=== PATIENT | female | born 1960 | race African-American/Black ===

== ENCOUNTER 2018-11-08 11:50 | Emergency (ER) | payer MEDICAID, MEDICARE ==
--- NOTE | 2018-11-08 12:50 | RAD ---
UPRIGHT FRONTAL CHEST RADIOGRAPH: Date: 11-08-18 Comparison: 04-30-11 History: Hypertension, back pain, chest pain, hyperglycemia. FINDINGS: Heart and mediastinal contours appear within normal limits. No pneumothorax, pleural fluid, focal con solidation or alveolar edema. IMPRESSION: No acute findings. POS: [facility]
[2018-11-08] MEDS ORDERED: Iopamidol 370 76% 50 ML VIAL FS ONE (12:53)
[2018-11-08 13:14] LABS: Hemoglobin 13.5 g/dL (12.0-16.0); Mean Corpuscular HGB CONC 33.7 g/dL (32.0-36.0); Mean Corpuscular Hemoglobin 28.5 pg (27.0-31.0); Mean Corpuscular Volume 84.6 fL (78.0-98.0); Mean Platelet Volume 8.5 fL (7.4-10.4); Platelet Count 254 thou/uL (130-400); RBC Distribution Width 12.4 % (11.5-14.5); Red Blood Cell (RBC) Count 4.75 mill/uL (4.20-5.40); White Blood Cell (WBC) Count 4.7 thou/uL (4.8-10.8)
[2018-11-08 13:34] LABS: ALT (SGPT) 14 U/L (8-55); AST (SGOT) 13 U/L (5-34); Alkaline Phosphatase 123 U/L (40-150); Anion Gap 12 mmol/L (10-20); BUN (Urea Nitrogen) 14 mg/dL (9.8-20.1); Bilirubin, Total 0.2 mg/dL (0.2-1.2); CK (CPK) 49 U/L (29-168); Calc. Creatinine Clearance 0 mL/min (70-130); Calcium 9.5 mg/dL (7.8-10.44); Carbon Dioxide 23 mmol/L (22-29); Chloride 106 mmol/L (98-107); Estimated GFR-MDRD Greater than 90; Globulin 3.8 g/dL (2.4-3.5); Glucose 104 mg/dL (70-105); Potassium 4.3 mmol/L (3.5-5.1); Protein, Total 7.8 g/dL (6.0-8.3); Sodium 137 mmol/L (136-145)
[2018-11-08 14:01] LABS: Eosinophils 2 % (0-10); Lymphocytes 55 % (21-51); MDiff Complete? YES; Monocytes 8 % (0-10); Neutrophil 34 % (42-75); PLT Morphology Comment Appears Adequate
--- NOTE | 2018-11-08 14:17 | CT ---
CT ANGIOGRAM THORAX WITH IV CONTRAST AND 3D RECONSTRUCTIONS: Date: 11/08/18 HISTORY: Dull chest pain which started last night. Patient also complains of back pain. FINDINGS: No filling defects are seen in the pulmonary arteries to suggest a pulmonary embolus. Vascular calcif ications are seen in the thoracic aorta with minimal vascular calcifications in the coronary arteries . The thoracic aorta is normal in caliber without evidence of an aortic dissection. Calcified mediastinal lymph nodes are present. No enlarged lymph nodes are seen by CT size criteria. There is a pleural based nodular density along the minor fissure, likely related to an area of nodula r pleural thickening. There is linear atelectasis versus scarring at the medial aspect of each lung b ase. Lungs are otherwise clear and there is no pleural effusion present. Calcified granulomas seen in the visualized spleen. IMPRESSION: 1. No CT evidence of a pulmonary embolus. 2. Mild cardiomegaly. 3. Evidence of prior granulomatous disease. POS: [facility]
[2018-11-08 15:13] LABS: Bilirubin Negative (Negative); Blood, Urine Small (Negative); Clarity CLEAR (Clear); Glucose, Urine (Dipstick) Negative (Negative); Leukocyte Negative (Negative); Nitrite Negative (Negative); Protein, Urine (Dipstick) Negative (Neg-Trace); Specific Gravity, Urine 1.037 (1.002-1.036); Urobilinogen 0.2 mg/dL (0.2-1.0)
[2018-11-08 15:16] LABS: Bacteria/HPF None Seen HPF (None Seen); Hyaline Casts/LPF 0-3 HYALINE CAST LPF (0-3 Hyaline); Pathc Cast-AUWi Flag 0.43 (0-2.49); Squamous Epithelial 0-3 HPF (0-3); WBC/HPF 0-3 HPF (0-3)
== END 2018-11-08 15:07 | disposition home or self-care (01) ==
LOC: ERS 11:50
DX: R07.9 Chest pain, unspecified (principal); E11.65 Type 2 diabetes mellitus with hyperglycemia; I10 Essential (primary) hypertension
CPT/HCPCS: 71045; 71275; 80053; 81003; 81015; 82010; 82550; 83880; 84484; 85025; 85379; 93005; 96360

== ENCOUNTER 2019-08-25 10:16 | Day surgery (SDC) | payer OTHER ==
[2019-08-24 14:19] VITALS: BMI 36.7
[2019-08-25] MEDS ORDERED: Fentanyl 100 MCG/2 ML VIAL ONE (13:38)
--- NOTE | 2019-08-25 15:46 | MRI ---
EXAM: MRI of the brain without contrast HISTORY: Dizziness and imbalance for several months COMPARISON: 03/20/2009 TECHNIQUE: Multiplanar multisequence MR images were obtained of the brain without IV contrast. FINDINGS: The brain demonstrates normal signal intensity on all obtained sequences. No restricted diffusion. No hydronephrosis. No extra-axial fluid collection or intracranial hemorrhage. The expected flow voids are present. Corpus callosum, pituitary, and craniocervical junction are within normal limits. The calvarium and overlying soft tissues are unremarkable. The paranasal sinuses and mastoid air cells are well aerated. IMPRESSION: No evidence of acute intracranial abnormality.
--- NOTE | 2019-08-25 15:52 | MRI ---
Cervical spine MRI: 08/25/2019 COMPARISON: 01/17/2013 HISTORY: Dizziness, stenosis, imbalance, cervical spondylosis TECHNIQUE: Multiplanar multisequence MR imaging of cervical spine without contrast FINDINGS: The sagittal STIR imaging demonstrates no focal area of osseous marrow edema. No significan t anterolisthesis or retrolisthesis noted within the cervical spine. Stable mild degenerative change at the atlantoaxial interspace. C2-3: No significant central canal or neural foraminal stenosis. C3-4: Mild stable disc bulge. Mild facet hypertrophy on the left. Mild/moderate central canal stenosi s. No significant neural foraminal stenosis. C4-5: Disc space narrowing with disc bulge effacing ventral thecal sac and causing severe central can al stenosis with mild mass effect on the cervical cord, slightly worsened since the prior exam. Mild bilateral neural foraminal stenosis on the basis of facet hypertrophy. C5-6: Disc space with disc desiccation and disc bulge effacing ventral thecal sac and abutting the ve ntral aspect of the cord with mild cord flattening and severe central canal stenosis. Bilateral facet and uncovertebral osteophyte formation causes moderate/severe bilateral neural foraminal stenos is, left greater than right. C6-7: There is disc space narrowing with disc desiccation and mild disc bulge causing partial effacem ent of the ventral thecal sac and mild/moderate central canal stenosis, stable. Moderate neural foraminal stenosis on the basis of facet and uncovertebral osteophyte formation. C7-T1: No significant central canal or neural foraminal stenosis. No focal area of abnormal signal intensity within the cervical cord. IMPRESSION: Prominent multilevel cervical spine degenerative change as detailed above.
--- NOTE | 2019-08-25 16:08 | MRI ---
Lumbar spine MRI without contrast: 08/25/2019 COMPARISON: None HISTORY: Lumbar radiculopathy TECHNIQUE: Multiplanar multisequence MR imaging of the lumbar spine without contrast FINDINGS: The sagittal STIR imaging demonstrates no focal area of osseous marrow edema. On the basis of 5 lumbar type vertebral bodies, conus medullaris terminates at L1-2. T12-L1: Mild bilateral facet hypertrophy. Mild disc space narrowing with no significant central canal or neural foraminal stenosis. L1-2: Mild bilateral facet hypertrophy and mild disc space narrowing with no significant central lukasz l or neural foraminal stenosis. L2-3: Disc desiccation, mild disc space narrowing, and mild disc bulge. Mild central canal stenosis a nd mild bilateral facet hypertrophy. Mild bilateral neural foraminal stenosis. L3-4: Mild bilateral facet hypertrophy. Disc desiccation and mild disc bulge present with mild centra l canal stenosis, mild left neural foraminal stenosis and moderate right neural foraminal stenosis. L4-5: Disc space narrowing with disc desiccation and disc bulge. Bilateral facet hypertrophy. Mild ce ntral canal stenosis. Severe bilateral neural foraminal stenosis. L5-S1: Disc space narrowing with disc desiccation and mild disc bulge. Right lateral osteophyte forma tion. Mild/moderate bilateral neural foraminal stenosis. Mild central canal stenosis. Imaged retroperitoneal structures are unremarkable. IMPRESSION: Multilevel lumbar spine degenerative change.
[2019-08-25] MEDS ORDERED: hydrALAZINE 20 MG/ML VIAL ONE (16:31)
== END 2019-08-25 17:40 | disposition home or self-care (01) ==
LOC: SDC/OP 10:16
PROVIDERS: ATTEND Neurological Surgery
DX: M48.02 Spinal stenosis, cervical region (principal); M47.12 Other spondylosis with myelopathy, cervical region; M50.21 Other cervical disc displacement, high cervical region; M51.16 Intervertebral disc disorders with radiculopathy, lumbar region; R42 Dizziness and giddiness; E11.9 Type 2 diabetes mellitus without complications; I10 Essential (primary) hypertension; Z86.73 Personal history of transient ischemic attack (TIA), and cerebral infarction without residual deficits; Z79.84 Long term (current) use of oral hypoglycemic drugs; Z79.899 Other long term (current) drug therapy
CPT/HCPCS: 36416; 70551; 72141; 72148; J0360; J3010

== ENCOUNTER 2025-08-30 08:38 | Outpatient (CLI) | payer BC ==
[2025-08-30 09:02] LABS: Estimated GFR - POC 99.0
== END 2025-08-30 08:39 | disposition home or self-care (01) ==
LOC: SCSMRI 08:38
PROVIDERS: ATTEND Otolaryngology Plastic Surgery within the Head & Neck
DX: R51.9 Headache, unspecified (principal); R90.82 White matter disease, unspecified
CPT/HCPCS: 36415; 70553; 76376; 82565